=== PATIENT | male | born 1990 | race Two or more races ===

== ENCOUNTER 2019-12-24 13:29 | Emergency (ER) | payer SELFPAY ==
[~2019-12-24] VITALS: Ht 180.3 cm; Wt 81.6 kg
[2019-12-24 13:38] VITALS: BP 113/91
[2019-12-24] MEDS ORDERED: SODIUM CHLORIDE 0.9% 1,000 ML IV ONE ×2 (14:00)
== END 2019-12-24 18:45 | disposition left against medical advice (07) ==
LOC: EDBD 13:29 → ER 13:29
DX: G93.41 Metabolic encephalopathy (principal); E86.0 Dehydration; F17.210 Nicotine dependence, cigarettes, uncomplicated
CPT/HCPCS: 70450; 71045